=== PATIENT | female | born 1980 | race Caucasian/White ===

== ENCOUNTER 2017-12-23 16:44 | Emergency (ER) | payer OTHER ==
[~2017-12-23] VITALS: Ht 167.6 cm; Wt 96.2 kg
[2017-12-23 16:59] VITALS: BP 135/88
--- NOTE | 2017-12-23 17:06 | NUR ---
PT AMBULATED BACK TO ER LOBBY WAITING FOR AN OPEN ER BED.
--- NOTE | 2017-12-23 18:36 | NUR ---
PT CALLED FOR RE-ASSESSMENT, NO RESPONSE FROOM SANDY DOUGLAS.
--- NOTE | 2017-12-23 18:41 | NUR ---
PT CALLED FOR RE-ASSESSMENT, NO RESPONSE FROOM SANDY DOUGLAS.
--- NOTE | 2017-12-23 18:46 | NUR ---
PATIENT LEFT WITHOUT BEING SEEN BY DR. DUMONT. NO FURTHER CARE PROVIDED FOR PATIENT.
== END 2017-12-23 18:46 | disposition left against medical advice (07) ==
LOC: MED 16:44
DX: M79.674 Pain in right toe(s) (principal); Z53.21 Procedure and treatment not carried out due to patient leaving prior to being seen by health care provider